=== PATIENT | male | born 1975 | race African-American/Black ===

== ENCOUNTER 2018-06-17 16:02 | Emergency (ER) | payer OTHER ==
[~2018-06-17] VITALS: Ht 175.3 cm; Wt 84.5 kg
--- NOTE | ~2018-06-17 | EKG ---
[address] [place] [address] ELECTROCARDIOGRAM REPORT Name: ARAMISSHANNANDEWEY Room #: DEP JOI Dozier#: [id number] Admission: 06/17/18 Attend Phys: Discharge: 06/17/18 Date of : 75 Report #: [id number] THIS REPORT FOR: //name// [facility] ED Test Date: 2018-06-17 Test Time: 17:02:19 Pat Name: DINO SELF Department: Room: Gender: [employer] Supervisor: MANOLO : 1975 Requested By: Claudette Patel Order Number: [id number] MD: Rogelio Mckeon Measurements Intervals [place] Rate: 76 P: 59 [place]: 156 QRS: -9 QRSD: 91 T: 9 QT: 357 QTc: 402 Interpretive Statements Sinus rhythm LVH by voltage No previous ECG available for comparison Electronically Signed On 06-19-2018 15:03:33 [employer]IPPLE REPAIR[employer] by Rogelio Mckeon [email or web address] <ELECTRONICALLY SIGNED> By: Rogelio Mckeon MD 06/19/18 1503 1702 1702 Rogelio Mckeon MD /MOISES
[2018-06-17] MEDS ORDERED: LISINOPRIL10 MG PO (17:14)
[2018-06-17] MEDS ORDERED: AMLODIPINE BESY10 MG PO (17:14)
[2018-06-17 17:48] LABS: ABSOLUTE NEUTROPHILS 7.3 thou/uL (1.4-8.2); BASOPHILS 0.1 % (0.0-2.0); HEMATOCRIT 49.8 % (42.0-52.0); HEMOGLOBIN 16.9 gm/dL (14.0-18.0); LYMPHOCYTES 4.1 % (24.0-44.0); MCH 29.7 pg (26.0-34.0); MCV 87.4 fL (80.0-100.0); MONOCYTES 3.6 % (1.0-8.0); PLATELET COUNT 179 thou/uL (150-400); POLYS 92.2 % (36.0-66.0); RDW 13.5 % (10.5-14.5)
[2018-06-17 17:54] LABS: ANION GAP 6 mmol/L (7-16); BUN 17 mg/dL (7-18); CALCIUM 9.7 mg/dL (8.5-10.1); CHLORIDE 104 mmol/L (98-107); CO2 30 mmol/L (21-32); CREATININE 1.1 mg/dL (0.7-1.3); GLUCOSE 100 mg/dL (74-106); POTASSIUM 3.7 mmol/L (3.5-5.1); SODIUM 140 mmol/L (136-145)
[2018-06-17 18:03] LABS: ALBUMIN 4.2 g/dL (3.4-5.0); DIRECT BILIRUBIN < 0.1 mg/dL (<0.1-0.3); LIPASE 154 U/L (73-393); SGOT 14 U/L (15-37); SGPT 24 U/L (30-65); TOTAL BILIRUBIN 0.3 mg/dL (<0.1-1.0); TOTAL PROTEIN 7.6 g/dL (6.4-8.2); TROPONIN-I <0.06 ng/mL (<0.06)
[2018-06-17 18:29] LABS: URINE CLARITY CLEAR; URINE COLOR YELLOW
[2018-06-17 18:30] LABS: URINE BILIRUBIN NEGATIVE (Negative); URINE BLOOD NEGATIVE (Negative); URINE GLUCOSE-RANDOM* NEGATIVE (Negative); URINE KETONES NEGATIVE (Negative); URINE LEUKOCYTES-REFLEX NEGATIVE (Negative); URINE NITRITE-REFLEX NEGATIVE (Negative); URINE PROTEIN (DIPSTICK) TRACE (Negative); URINE SPECIFIC GRAVITY > 1.030 (1.005-1.035); URINE UROBILINOGEN 0.2 E.U./dl (0.2-1.0)
[2018-06-17] MEDS ORDERED: ZOFRAN4 MG PO (18:52)
[2018-06-17 19:21] VITALS: BP 137/87
== END 2018-06-17 19:21 | disposition home or self-care (01) ==
LOC: ER 16:02
PROVIDERS: Emergency Medicine
DX: R11.2 Nausea with vomiting, unspecified (principal); M41.9 Scoliosis, unspecified; Z88.5 Allergy status to narcotic agent